=== PATIENT | female | born 1990 | race Hispanic/Latino ===

== ENCOUNTER 2017-12-09 20:13 | Emergency (ER) | payer SELFPAY ==
[2017-12-09 20:21] VITALS: BP 132/89; PULSE 96; RESP 18; TEMP 98.1; O2SAT 98
--- NOTE | 2017-12-09 20:47 | C.PDOC ---
History Of Present Illness 27 year old female patient presents to the ER with c/o SOB and chest tightness [employer]. Patient report she also reports dry cough and nasal congestion since yesterday. Also states that " i become SOB each time I get a cold". Patient denies fever, chills, chest pain and palpitations. Time Seen by Provider: 12/09/17 20:32 Chief Complaint (Nursing): Cough, Cold, Congestion History Per: Patient History/Exam Limitations: no limitations Onset/Duration Of Symptoms: Days (x1) Current Symptoms Are (Timing): Still Present Past Medical History Reviewed: Historical Data, Nursing Documentation, Vital Signs Vital Signs: Last Vital Signs Temp 98.1 F 12/09/17 20:18 Pulse 96 H 12/09/17 20:18 Resp 18 12/09/17 20:18 BP 132/89 12/09/17 20:18 Pulse Ox 98 12/09/17 20:52 - Medical History PMH: Bronchitis Family History: States: No Known Family Hx - Social History Hx Alcohol Use: No Hx Substance Use: Yes - Immunization History Hx Tetanus Toxoid Vaccination: No Hx Influenza Vaccination: No Hx Pneumococcal Vaccination: No Review Of Systems Except As Marked, All Systems Reviewed And Found Negative. Constitutional: Negative for: Fever, Chills ENT: Positive for: Nose Discharge Cardiovascular: Positive for: Other (chest tightness). Negative for: Chest Pain , Palpitations Respiratory: Positive for: Shortness of Breath Physical Exam - Physical Exam Appears: Non-toxic, No Acute Distress Skin: Normal Color, Warm, Dry Head: Atraumatic, Normacephalic Eye(s): bilateral: Normal Inspection, PERRL, EOMI Nose: Discharge Oral Mucosa: Moist Throat: Normal Chest: Symmetrical, No Deformity Cardiovascular: Rhythm Regular Respiratory: Decreased Breath Sounds, No Rales, No Rhonchi, No Stridor, Wheezing (expiratory ) Neurological/Psych: Oriented x3, Normal Speech ED Course And Treatment O2 Sat by Pulse Oximetry: 98 (RA) Pulse Ox Interpretation: Normal Progress Note: Impression: SOB, chest tightness with cold sx. Plans: -- Albuterol. -- Prednisone. Reassess: Patient is resting comfortably,in no resp distress Patient remains stable and instructed to f/u with PMD in 1-2 days. Return precautions discussed Reevaluation Time: 21:45 Reassessment Condition: Improved Disposition - Disposition Referrals: Non [facility] Provider, [Primary Care Provider] - [facility] [Outside] Disposition: HOME/ ROUTINE Disposition Time: 21:45 Condition: STABLE Additional Instructions: Please follow up with PMD Take meds as directed Use inhaler as needed for shortness of breath Return to ER if worse Prescriptions: Albuterol HFA [Ventolin HFA 90 mcg/actuation (8 g)] 2 puff IH [id number] #1 inhaler Cetirizine HCl [Zyrtec] 10 mg PO DAILY #10 capsule predniSONE [Prednisone] 40 mg PO DAILY #8 tab Instructions: Upper Respiratory Infection (ED) Forms: [employer] (Ukrainian) - Clinical Impression Clinical Impression: Reactive airway disease, Upper respiratory infection - PA / CREELER / Resident Statement MD/ has reviewed & agrees with the documentation as recorded. - Scribe Statement The provider has reviewed the documentation as recorded by the Filomena Ramos Do All medical record entries made by the Scribe were at my direction and personally dictated by me. I have reviewed the chart and agree that the record accurately reflects my personal performance of the history, physical exam, medical decision making, and the department course for this patient. I have also personally directed, reviewed, and agree with the discharge instructions and disposition.
[2017-12-09] MEDS ORDERED: Albuterol 0.083% Inhal Sol (2.5 mg/3 mL) UD INH SCH (21:00)
[2017-12-09] MEDS ORDERED: Albuterol 0.083% Inhal Sol (2.5 mg/3 mL) UD ONE (21:01)
== END 2017-12-09 21:54 | disposition home or self-care (01) ==
LOC: SUPCPDRO 20:13 → C.ER 20:13
DX: J45.909 Unspecified asthma, uncomplicated (principal); J06.9 Acute upper respiratory infection, unspecified

== ENCOUNTER 2018-05-30 06:21 | Emergency (ER) | payer SELFPAY ==
[2018-05-30] MEDS ORDERED: Albuterol-Ipratrop 3 mg / 0.5 (3 ml) UD ONE ×2 (06:26→07:47)
[2018-05-30 06:28] VITALS: RESP 20
[2018-05-30] MEDS ORDERED: Albuterol-Ipratrop 3 mg / 0.5 (3 ml) UD INH STA ×2 (06:35→07:10)
--- NOTE | 2018-05-30 07:12 | C.PDOC ---
History Of Present Illness 27 y/o female with hx childhood asthma c/o difficulty breathing and wheezing since last night, with mild cold symptoms and cough with clear sputum, no fever or chills. pt doesn't have inhaler at home. no hx intubation, pf max unknown. Time Seen by Provider: 05/30/18 07:01 Chief Complaint (Nursing): Shortness Of Breath History Per: Patient History/Exam Limitations: no limitations Onset/Duration Of Symptoms: Days (1) Current Symptoms Are (Timing): Better Initiating Event: denies: Exposure To Smoke Current Respiratory Medications: None Severity: Mild Associated Symptoms: Productive Cough (clear sputum). denies: Fever, Chills, Leg/Calf Pain Past Medical History Reviewed: Historical Data, Nursing Documentation, Vital Signs Vital Signs: Last Vital Signs Temp 97.6 F 05/30/18 06:27 Pulse 88 05/30/18 06:27 Resp 20 05/30/18 06:29 BP 118/75 05/30/18 06:27 Pulse Ox 100 05/30/18 06:29 - Medical History PMH: Asthma, Bronchitis Family History: States: Unknown Family Hx - Social History Hx Tobacco Use: Yes Hx Alcohol Use: No Hx Substance Use: Yes - Immunization History Hx Tetanus Toxoid Vaccination: No Hx Influenza Vaccination: No Hx Pneumococcal Vaccination: No Review Of Systems Constitutional: Negative for: Fever, Chills Cardiovascular: Negative for: Chest Pain Respiratory: Positive for: Cough, Shortness of Breath, Sputum (clear), Wheezing Gastrointestinal: Negative for: Nausea, Vomiting, Abdominal Pain, Diarrhea Musculoskeletal: Negative for: Back Pain Skin: Negative for: Rash Neurological: Negative for: Weakness, Numbness Physical Exam - Physical Exam Appears: Non-toxic, No Acute Distress (speaks in full sentences) Skin: Warm, Dry Head: Atraumatic, Normacephalic Eye(s): bilateral: Normal Inspection Ear(s): Bilateral: Normal Nose: No Discharge Oral Mucosa: Moist Throat: No Erythema, No Exudate Neck: Supple Cardiovascular: Rhythm Regular, No Murmur Respiratory: No Decreased Breath Sounds, No Accessory Muscle Use, No Wheezing, Other (examined after receiving one nebulizer treatment in ed. ) Extremity: Normal ROM, No Pedal Edema, No Calf Tenderness Neurological/Psych: Oriented x3, Normal Speech, Normal Cognition ED Course And Treatment O2 Sat by Pulse Oximetry: 100 Medical Decision Making Medical Decision Making: pt given a treatment prior to my exam. pf now 400. pt with childhood asthma, which flares with uri. has no inhaler at home. 0813 pt feeling much better after second nebulizer treatment, no sob, pt with pf 400, able to ambulate around ed with no sob. will d/c pt with albuterol mdi and rx for prednisone. Disposition Counseled Patient/Family Regarding: Diagnosis, Need For Followup, Rx Given, Smoking Cessation - Disposition Referrals: [facility] [Outside] [facility] [Outside] Disposition: HOME/ ROUTINE Disposition Time: 08:15 Condition: IMPROVED Additional Instructions: Please stop smoking. Use albuterol inhaler 2 puffs every 6 hours if needed for wheezing or sob. Return to ER for any worse symptoms. Check peak flow daily and ayleen on chart. Prescriptions: Albuterol HFA [Ventolin HFA 90 mcg/actuation (8 g)] 2 puff IH Q6 #1 inhaler predniSONE [predniSONE Tab] 40 mg PO DAILY #10 tab Instructions: Asthma, Adult (DC) Forms: [facility] (Maori), General Discharge Instructions - Clinical Impression Clinical Impression: Asthma
[2018-05-30 08:12] VITALS: BP 117/76; PULSE 104; TEMP 97.7
[2018-05-30 08:16] VITALS: O2SAT 100
== END 2018-05-30 08:27 | disposition home or self-care (01) ==
LOC: C.ER 06:21
DX: J45.909 Unspecified asthma, uncomplicated (principal); Z72.0 Tobacco use